=== PATIENT | male | born 1995 ===

== ENCOUNTER 2017-10-05 13:01 | Inpatient (IN) | payer BC, OTHER ==
[2017-10-05 13:02] VITALS: BMI 19.0
[2017-10-05] MEDS ORDERED: Sodium Chloride 0.9% 1,000 ML IV ONE (13:39)
--- NOTE | 2017-10-05 13:49 | C.PDOC ---
History Of Present Illness 22yo male, history of HIV (uknown CD4/viral load), comes to ER for evaluation of fever and chills x 3 days. Patient reports he had a T-max of 103 at home and has been taking OTC medication (Dayquil and Nyquil) with no relief. He also reports an episode of vomiting but denies any persistent episodes. Otherwise, patient denies any shortness of breath, chest pain, vomiting, constipation, abdominal pain, and offers no additional medical complaints. Time Seen by Provider: 10/05/17 13:18 Chief Complaint (Nursing): Abdominal Pain History Per: Patient History/Exam Limitations: no limitations Onset/Duration Of Symptoms: Days Current Symptoms Are (Timing): Still Present Associated Symptoms: Fever, Chills, Vomiting. denies: Nausea, Diarrhea, Constipation Past Medical History Reviewed: Historical Data, Nursing Documentation, Vital Signs Vital Signs: Last Vital Signs Temp 98.6 F 10/05/17 17:20 Pulse 68 10/05/17 17:20 Resp 20 10/05/17 17:20 BP 118/62 10/05/17 17:20 Pulse Ox 98 10/05/17 17:20 - Medical History PMH: HIV Denies: Depression Surgical History: No Surg Hx - [facility] Procedures ENDOSCOPIC BIOPSY OF RECTUM (01/14/12) Family History: States: No Known Family Hx - Social History Hx Tobacco Use: No Hx Alcohol Use: No Hx Substance Use: No - Immunization History Hx Tetanus Toxoid Vaccination: No Hx Influenza Vaccination: No Hx Pneumococcal Vaccination: No Review Of Systems Except As Marked, All Systems Reviewed And Found Negative. Constitutional: Positive for: Fever, Chills Cardiovascular: Negative for: Chest Pain Respiratory: Negative for: Shortness of Breath Gastrointestinal: Positive for: Vomiting. Negative for: Nausea, Abdominal Pain , Diarrhea, Constipation Physical Exam - Physical Exam Appears: Non-toxic, No Acute Distress Skin: Normal Color, Warm, Dry Head: Atraumatic, Normacephalic Eye(s): bilateral: Normal Inspection, PERRL, EOMI Nose: Normal Oral Mucosa: Moist Neck: Normal ROM, No Midline Cervical Tenderness, No Paracervical Tenderness, Supple, No Other (nucchal ridigity) Chest: Symmetrical Cardiovascular: Rhythm Regular Respiratory: Normal Breath Sounds, No Rales, No Rhonchi, No Wheezing Gastrointestinal/Abdominal: Normal Exam, Soft, No Tenderness, No Guarding, No Rebound Back: Normal Inspection, No CVA Tenderness, No Vertebral Tenderness, No Paraspinal Tenderness, Other (erythematous, raised rash noted to tailbone area) Extremity: Normal ROM, No Pedal Edema, No Deformity Neurological/Psych: Oriented x3, Normal Speech, Normal Cognition, Normal Motor, Normal Sensation ED Course And Treatment - Laboratory Results Result Diagrams: 10/05/17 13:55 10/05/17 13:55 ECG: Interpreted By Me, Viewed By Me ECG Rhythm: Sinus Rhythm ECG Interpretation: Normal Interpretation Of ECG: normal interval, normal axis, no ST/T changes Rate From EC O2 Sat by Pulse Oximetry: 100 (RA) Pulse Ox Interpretation: Normal Medical Decision Making Medical Decision Making: Assessment: Fever of unknown origin Plan: -- Labs -- CXR -- RPR -- UA -- IV Fluids -- Tylenol 975mg PO -- IV Toradol patient with rash to tailbone, not cellulitic, ? herpes zoster, patient admitted to hospital. Disposition Discussed With Dr.: Kate Diehl Doctor Will See Patient In The: Hospital Counseled Patient/Family Regarding: Studies Performed, Diagnosis - Disposition Disposition: HOSPITALIZED Disposition Time: 15:18 Condition: FAIR - Clinical Impression Clinical Impression: Fever, Rash, HIV (human immunodeficiency virus infection) - Scribe Statement The provider has reviewed the documentation as recorded by the Akhil De La Fuente Provider Attestation: All medical record entries made by the Akhil were at my direction and personally dictated by me. I have reviewed the chart and agree that the record accurately reflects my personal performance of the history, physical exam, medical decision making, and the department course for this patient. I have also personally directed, reviewed, and agree with the discharge instructions and disposition.
[2017-10-05 14:04] LABS: BASO % 0.3 % (0.0-2.0); HEMOGLOBIN 14.2 g/dL (12.0-18.0); LYMPH # 1.8 K/uL (1.0-4.3); LYMPH % 23.8 % (20.0-40.0); MEAN CELL VOLUME 93.2 fL (80.0-94.0); MEAN CORPUSCULAR HEMOGLOBIN 32.4 pg (27.0-31.0); MEAN CORPUSCULAR HGB CONC 34.8 g/dL (33.0-37.0); MEAN PLATELET VOLUME 8.6 fL (7.2-11.7); MONO % 13.5 % (0.0-10.0); NEUT # 4.6 K/uL (1.8-7.0); NEUT % 62.4 % (50.0-75.0); NRBC % 0.1 % (0.0-2.0); RBC 4.37 Mil/uL (4.40-5.90); RED CELL DISTRIBUTION WIDTH 12.3 % (11.5-14.5); WHITE BLOOD COUNT 7.4 K/uL (4.8-10.8)
[2017-10-05 14:12] LABS: SQUAMOUS EPITHIAL < 1 /hpf (0-5); URINE BACTERIA RARE (<OCC); URINE BILIRUBIN NEGATIVE (NEGATIVE); URINE BLOOD 1+ (NEGATIVE); URINE CLARITY Clear (Clear); URINE COLOR Yellow (YELLOW); URINE GLUCOSE (UA) NORMAL (Normal); URINE LEUKOCYTE ESTERASE NEG Leu/uL (Negative); URINE PROTEIN NEGATIVE (NEGATIVE); URINE UROBILINOGEN NORMAL mg/dL (0.2-1.0)
[2017-10-05 14:15] LABS: ALB/GLOB RATIO 0.9 (1.0-2.1); ALBUMIN 4.7 g/dL (3.5-5.0); ALT/SGPT 39 U/L (21-72); AST/SGOT 33 U/L (17-59); BLOOD UREA NITROGEN 9 mg/dL (9-20); CALCIUM 9.6 mg/dl (8.6-10.4); GFR AFRICAN-AMERICAN > 60; GFR NON-AFRICAN AMERICAN > 60
[2017-10-05] MEDS ORDERED: Sodium Chloride 0.9% 1,000 ML ONE (14:17)
--- NOTE | 2017-10-05 14:25 | RAD ---
Date of service: 10/05/2017 HISTORY: SOB COMPARISON: No prior. TECHNIQUE: Chest PA and lateral FINDINGS: LUNGS: No active pulmonary disease. PLEURA: No significant pleural effusion identified. No pneumothorax apparent. CARDIOVASCULAR: Normal. OSSEOUS STRUCTURES: No significant abnormalities. VISUALIZED UPPER ABDOMEN: Normal. OTHER FINDINGS: None. IMPRESSION: No active disease.
[2017-10-05 17:21] VITALS: RESP 20
--- NOTE | 2017-10-05 20:06 | CP.PCM.CON ---
History of Present Illness - History of Present Illness History of Present Illness: INFECTIOUS DISEASE CONSULT; HPI; 22-year-old male with history of HIV since 2011 ( unknown CD4/viral load ) is admitted via the emergency room for evaluation of fever and chills for the past 3 days. Patient states he had a MAXIMUM TEMPERATURE of 103 at home and also has been complaining off dry cough for which he has been taking [id number] medications that is NyQuil and DayQuil but with no relief. Patient states he was recently started on GENVOYA (elvitegravir/Amena/ Emtricitabine/TAF ) 1 tablet once a day since January 2017. Patient complains of 1 episode of vomiting which he believes was secondary to cough syrup but denies any persistent episodes. He denies shortness of breath, hemoptysis, chest pain, abdominal pain, nausea, diarrhea or constipation. Patient also noticed a rash sacral region which he states is getting worse for the past few days. He has been using steroid cream over it which is not helping. Patient denies any headache, photophobia, floaters or visual changes. Patient denies any oral ulcers, dysphagia or odynophagia. PMH: HIV (SINCE 2011 ) Denies: Depression Surgical History: No Surg Hx - [facility] Procedures ENDOSCOPIC BIOPSY OF RECTUM (01/14/12) Family History: States: No Known Family Hx - Social History Hx Tobacco Use: No Hx Alcohol Use: No Hx Substance Use: No - Immunization History Hx Tetanus Toxoid Vaccination: No Hx Influenza Vaccination: No Hx Pneumococcal Vaccination: No. ALLERGY; Peppers Review of Systems - Constitutional Constitutional: Chills, Fever - EENT Eyes: Spots in Vision. absent: Blurred Vision, Floaters Nose/Mouth/Throat: absent: Dysphagia, Mouth Lesions, Odynophagia, Neck Pain - Cardiovascular Cardiovascular: absent: Chest Pain, Dyspnea, Leg Edema, Pedal Edema - Respiratory Respiratory: Cough (dry). absent: Hemoptysis, Pain with Coughing - Gastrointestinal Gastrointestinal: Vomiting (once only.). absent: Abdominal Pain, Nausea - Genitourinary Genitourinary: absent: Dysuria, Freq UTI - Integumentary Integumentary: Rash (sacral vesiclar rash not crossing the midline in a dermatomal pattern?herpetic .) - Psychiatric Psychiatric: absent: Depression - Hematologic/Lymphatic Hematologic: As Per HPI. absent: Lymphadenopathy Past Patient History - Past Medical History & Family History Past Medical History?: Yes - Past Social History Smoking Status: Never Smoked - HEENT Hx HEENT Problems: (ASTIGMATISM) - HEMATOLOGICAL/ONCOLOGICAL Hx Human Immunodeficiency Virus (HIV): Yes - MUSCULOSKELETAL/RHEUMATOLOGICAL Hx Falls: No - GASTROINTESTINAL Hx Nausea: Yes (8-12) - PSYCHIATRIC Hx Depression: No Hx Substance Use: No - SURGICAL HISTORY Hx Surgeries: No - ANESTHESIA Hx Anesthesia: No Meds Allergies/Adverse Reactions: Allergies Allergy/AdvReac Type Severity Reaction Status Date / Time shrimp Allergy Intermediate ITCHING Verified 10/06/17 12:37 peppers Allergy Intermediate RASH Uncoded 10/05/17 13:06 - Medications Medications: Current Medications Acetaminophen (Tylenol 325mg Tab) 650 mg PO Q6 PRN PRN Reason: Fever >100.4 F Enoxaparin Sodium (Lovenox) 40 mg SC DAILY JUAN Pantoprazole Sodium (Protonix Ec Tab) 20 mg PO DAILY JUAN Physical Exam - Constitutional Appears: No Acute Distress - Head Exam Head Exam: NORMAL INSPECTION - Eye Exam Eye Exam: EOMI, PERRL - ENT Exam ENT Exam: Normal Oropharynx - Neck Exam Neck exam: Positive for: Normal Inspection. Negative for: Lymphadenopathy, Meningismus, Thyromegaly - Respiratory Exam Respiratory Exam: Clear to Auscultation Bilateral, NORMAL BREATHING PATTERN - Cardiovascular Exam Cardiovascular Exam: Tachycardia, REGULAR RHYTHM, +S1, +S2 - GI/Abdominal Exam GI & Abdominal Exam: Normal Bowel Sounds, Soft. absent: Organomegaly - Extremities Exam Extremities exam: Positive for: pedal pulses present. Negative for: calf tenderness, pedal edema - Neurological Exam Neurological exam: Alert, CN II-XII Intact, Normal Gait, Oriented x3, Reflexes Normal - Psychiatric Exam Psychiatric exam: Normal Mood - Skin Skin Exam: Normal Color, Warm Results - Vital Signs Recent Vital Signs: Last Vital Signs Temp 98.6 F 10/05/17 17:20 Pulse 68 10/05/17 17:20 Resp 20 10/05/17 17:20 BP 118/62 10/05/17 17:20 Pulse Ox 98 10/05/17 17:20 - Labs Result Diagrams: 10/06/17 07:33 10/06/17 07:33 Labs: Laboratory Results - last 24 hr 10/05/17 10/05/17 10/05/17 13:55 13:55 13:55 WBC 7.4 RBC 4.37 L Hgb 14.2 Hct 40.8 MCV 93.2 MCH 32.4 H MCHC 34.8 RDW 12.3 Plt Count 257 MPV 8.6 Neut % (Auto) 62.4 Lymph % (Auto) 23.8 Amelia % (Auto) 13.5 H Eos % (Auto) 0.0 Baso % (Auto) 0.3 Neut # (Auto) 4.6 Lymph # (Auto) 1.8 Amelia # (Auto) 1.0 H Eos # (Auto) 0.0 Baso # (Auto) 0.0 Sodium 138 Potassium 4.0 Chloride 96 L Carbon Dioxide 28 Anion Gap 18 BUN 9 Creatinine 1.0 Est GFR ( Amer) > 60 Est GFR (Non-Af Amer) > 60 Random Glucose 142 H Calcium 9.6 Magnesium 1.8 Total Bilirubin 1.0 AST 33 ALT 39 Alkaline Phosphatase 77 Total Protein 9.9 H Albumin 4.7 Globulin 5.2 H Albumin/Globulin Ratio 0.9 L Urine Color Urine Clarity Urine pH Ur Specific [place] Urine Protein Urine Glucose (UA) Urine Ketones Urine Blood Urine Nitrate Urine Bilirubin Urine Urobilinogen Ur Leukocyte Esterase Urine WBC (Auto) Urine RBC (Auto) Ur Squamous Epith Cells Urine Bacteria RPR Nonreactive 10/05/17 14:02 WBC RBC Hgb Hct MCV MCH MCHC RDW Plt Count MPV Neut % (Auto) Lymph % (Auto) Amelia % (Auto) Eos % (Auto) Baso % (Auto) Neut # (Auto) Lymph # (Auto) Amelia # (Auto) Eos # (Auto) Baso # (Auto) Sodium Potassium Chloride Carbon Dioxide Anion Gap BUN Creatinine Est GFR ( Amer) Est GFR (Non-Af Amer) Random Glucose Calcium Magnesium Total Bilirubin AST ALT Alkaline Phosphatase Total Protein Albumin Globulin Albumin/Globulin Ratio Urine Color Yellow Urine Clarity Clear Urine pH 5.0 Ur Specific [place] 1.016 Urine Protein Negative Urine Glucose (UA) Normal Urine Ketones Negative Urine Blood 1+ H Urine Nitrate Negative Urine Bilirubin Negative Urine Urobilinogen Normal Ur Leukocyte Esterase Neg Urine WBC (Auto) 1 Urine RBC (Auto) 4 H Ur Squamous Epith Cells < 1 Urine Bacteria Rare RPR - Imaging and Cardiology Chest x-ray Status: Report reviewed by me (-VE) Assessment & Plan (1) Fever Assessment and Plan: PANCULTURE. ESR CRP. MRSA SCREEN. HERPES1/2 AB CRYPTOCOCCUS SERUM AG. START IV BACTRIM 240 MG iv PIGGYBACK EVERY 8 HOURLY 10/05/17. START iv ACYCLOVIR 400 MG iv PIGGYBACK EVERY 8 HOURLY .10/05/17. fOLLOW-UP CULTURES TO ADJUST ANTIBIOTICS. CONTACT PRECAUTIONS Status: Acute (2) Herpes zoster involving sacral dermatome Assessment and Plan: ZOVIRAX OINTMENT LOCALLY TID. cONTACT PRECAUTIONS. PATIENT STARTED ON iv ACYCLOVIR 400 EVERY 8 HOURLY. 10/05/17. Status: Acute (3) HIV (human immunodeficiency virus infection) Assessment and Plan: LYMPHOCYTE SUBSET STUDIES hiv-1 rna pcr QUANTITATIVE LEVELS. CONTINUE BY MOUTH GENVOYA 1 TABLET BY MOUTH ONCE A DAY DAILY. PHARMACY DOES NOT CARRY THIS MEDICATION. pATIENT CAN USE HIS HOME MEDICATION. DISCUSSED WITH STAFF AND MADE AWARE. Status: Acute
[2017-10-05] MEDS ORDERED: Promethazine 6.25 MG/5 ML CUP PO PRN (20:30)
[2017-10-05] MEDS: Sulfamethoxazole/Trimethoprim 240 MG in Dextrose 5% In Water 250 ML IVPB SCH (21:00)
[2017-10-05] MEDS: Acyclovir 400 MG in Sodium Chloride 0.9% 100 ML IV SCH (22:30)
[2017-10-06] MEDS: Acyclovir 400 MG in Sodium Chloride 0.9% 100 ML IV SCH ×3 (05:23→21:00)
[2017-10-06 07:49] LABS: BASO % 0.1 % (0.0-2.0); EOS % 0.1 % (0.0-4.0); HEMOGLOBIN 12.9 g/dL (12.0-18.0); LYMPH # 2.4 K/uL (1.0-4.3); MEAN CELL VOLUME 93.3 fL (80.0-94.0); MEAN CORPUSCULAR HEMOGLOBIN 33.4 pg (27.0-31.0); MEAN CORPUSCULAR HGB CONC 35.8 g/dL (33.0-37.0); MEAN PLATELET VOLUME 8.5 fL (7.2-11.7); MONO # 0.8 K/uL (0.0-0.8); MONO % 12.2 % (0.0-10.0); NEUT % 48.6 % (50.0-75.0); NRBC % 0.1 % (0.0-2.0); RBC 3.86 Mil/uL (4.40-5.90); RED CELL DISTRIBUTION WIDTH 12.2 % (11.5-14.5); WHITE BLOOD COUNT 6.2 K/uL (4.8-10.8)
--- NOTE | 2017-10-06 07:51 | HP ---
date 10/05/17 CHIEF COMPLAINT: Rash on the tailbone area in the back. HISTORY OF PRESENT ILLNESS: Mr. Harman Ritter is a 22-year-old male with history of HIV, unknown CD count or viral load, came to the emergency room for evaluation of fever, chills for three days. The patient reports he has had T-MAX of 103 at home and the patient has been taking [id number] medication, DayQuil and NyQuil. There is no relief. He reports he had episodes of vomiting, but denies any persistent vomiting. Otherwise, the patient denies shortness of breath. No constipation. no abdominal pain. There is a rash in the back area at the sacral area. PAST MEDICAL HISTORY: HIV. FAMILY HISTORY: Unknown. HABITS: No tobacco, no alcohol, no substance abuse HOME MEDICATIONS: Reviewed by me. REVIEW OF SYSTEMS: The patient was seen and examined at bedside in his room, looking comfortable. No fever right now. No headache or dizziness. No chest pain. No palpitation. No hematuria or hematochezia. He has rash on the back in the sacral area, coccygeal area, looks like herpes rash. PHYSICAL EXAMINATION: VITAL SIGNS: Temperature 98.6, pulse 60, respiratory rate 20, blood pressure 108/62. HEENT: Head: Normocephalic and atraumatic. Eyes: PERRLA. Extraocular muscles intact. Conjunctivae clear. Nose patent. NECK: Supple. No carotid bruits. No JVD or thyromegaly. CHEST: Bilaterally symmetrical. HEART: S1, S2 positive. LUNGS: Clear to auscultation. ABDOMEN: Soft. Bowel sounds present. No organomegaly. EXTREMITIES: No edema. No cyanosis. NEUROLOGICAL: The patient is awake, alert, moving all four extremities. No focal deficit. LABORATORY DATA: White blood cell 7.4, hemoglobin 14.2, hematocrit 40.8, platelets 257. Sodium 138, potassium 4, BUN 9, creatinine 1, glucose 142. ASSESSMENT AND PLAN: Mr. Harman Ritter is a 22-year-old male with hyperglycemia, HIV-positive, noncompliant, not getting treatment, came with fever, rash. We called Infectious Disease consult. Seen by Dr. Love Dominguez and started on medicine, acyclovir. Hematuria. Blood cultures and urine cultures done. Methicillin-resistant Staphylococcus aureus screening routine done. Put the patient on Bactrim, Lovenox for deep venous thrombosis prophylaxis, promethazine, pain medication, Zovirax. Antiviral treatment. Repeat labs. We will follow up. Discussion held with the Nursing staff. Kate Diehl MD JULIO C
[2017-10-06 08:16] LABS: BLOOD UREA NITROGEN 6 mg/dL (9-20); CALCIUM 8.8 mg/dl (8.6-10.4); GFR AFRICAN-AMERICAN > 60; GFR NON-AFRICAN AMERICAN > 60
[2017-10-06] MEDS: Enoxaparin 40 mg Syringe SC SCH (09:12)
[2017-10-06] MEDS: Pantoprazole 20 mg EC Tab PO SCH (09:14)
[2017-10-06] MEDS: Acyclovir 5% Oint (30 gm) EXT SCH ×3 (09:15→17:42)
[2017-10-06] MEDS: Sulfamethoxazole/Trimethoprim 240 MG in Dextrose 5% In Water 250 ML IVPB SCH ×2 (10:00→22:10)
[2017-10-06] MEDS ORDERED: cefTRIAXone IV 1 gm in Dextros 50 ML IVPB SCH (14:00)
[2017-10-06] MEDS ORDERED: Iodixanol 320 MG/ML 100 ML BOTTLE IV ONE (15:29)
[2017-10-06] MEDS: cefTRIAXone IV 1 gm in Dextros 50 ML IVPB SCH (16:28)
--- NOTE | 2017-10-06 18:20 | CT ---
Date of service: 10/06/2017 PROCEDURE: CT Chest without contrast HISTORY: Fever, pneumonia COMPARISON: October 05, 2017. Single-view chest TECHNIQUE: Contiguous axial images were obtained through the chest without intravenous contrast enhancement. Sagittal and coronal reconstructions were performed. Radiation dose (DLP): 258.94 mGy-cm. This CT exam was performed using one or more of the following dose reduction techniques: Automated exposure control, adjustment of the mA and/or kV according to patient size, and/or use of iterative reconstruction technique. FINDINGS: LUNGS: Clear lungs. Visualized airway clear. MEDIASTINUM: Unremarkable thoracic aorta. No aneurysm. Normal sized heart. Main pulmonary artery unremarkable. No vascular congestion. No lymphadenopathy. PLEURA: No pleural fluid. No pneumothorax. BONES: No fracture. No destructive lesion. UPPER ABDOMEN: Grossly unremarkable. OTHER FINDINGS: None. IMPRESSION: Unremarkable non-contrast enhanced CT of the chest.
--- NOTE | 2017-10-06 20:20 | CP.PCM.PN ---
Subjective - Date & Time of Evaluation Date of Evaluation: 10/06/17 Time of Evaluation: 20:19 - Subjective Subjective: CHIEF COMPLAINTS TODAY : TMAX 101.3 STATES HE FEEELS BETTER. Denies shortness of breath. Sitting up on the side of the bed. Rash sacrum-improving ROS. HEENT : N. Resp : No cough, wheezing ,pleuritic CP ,or hemoptysis Cardio : No anginal CP, PND, orthopnea, palpitation GI : No abd.pain, n/v ,diarrhea or GI bleeding . 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 Musculoskel : No joint swelling , Derm : No rash Psych : Normal affect. Ext : No swelling ,calf pain PE. Pt. is alert awake in no distress. V.S As noted in the chart Head ,ear nose,throat and eyes : Normal. Neck : Supple with normal carotids. Lungs: Clear air entry. Heart : S1 & S2 normal with S4. No murmur. Abd : Soft non tender with normal bowel sounds. Neuro : Moves all ext. with no localized deficit. Ext : No edema with intact pulses.Non tender calves Derm SACRAL RASH CONSISTENT WITH HERPES ZOSTER LABS/RADIOLOGY: reviewed. Objective - Vital Signs/Intake and Output Vital Signs (last 24 hours): Temp Pulse Resp BP Pulse Ox 98.8 F 78 20 117/60 96 10/06/17 15:30 10/06/17 15:30 10/06/17 15:30 10/06/17 15:30 10/06/17 15:30 Intake and Output: 10/06/17 10/07/17 18:59 06:59 Intake Total 990 Balance 990 - Medications Medications: Current Medications Acetaminophen (Tylenol 325mg Tab) 650 mg PO Q6 PRN PRN Reason: Fever >100.4 F Last Admin: 10/06/17 09:08 Dose: 650 mg Acyclovir (Zovirax 5% Ointment) 0.5 gm EXT TID [facility] Last Admin: 10/06/17 17:42 Dose: 1 applic Enoxaparin Sodium (Lovenox) 40 mg SC DAILY [facility] Last Admin: 10/06/17 09:12 Dose: Not Given Trimethoprim/Sulfamethoxazole (240 mg/ Dextrose) 250 mls @ 167 mls/hr IVPB Q12H [facility] PRN Reason: Protocol Last Admin: 10/06/17 10:00 Dose: 167 mls/hr Acyclovir 400 mg/ Sodium (Chloride) 100 mls @ 100 mls/hr IV Q8H JUAN PRN Reason: Protocol Last Admin: 10/06/17 14:33 Dose: 100 mls/hr Ceftriaxone Sodium (Rocephin Iv 1 Gm Duplex) 50 mls @ 100 mls/hr IVPB Q12H JUAN PRN Reason: Protocol Last Admin: 10/06/17 16:28 Dose: 100 mls/hr Ibuprofen (Motrin Tab) 600 mg PO TID PRN PRN Reason: Other Last Admin: 10/06/17 10:55 Dose: 600 mg Ondansetron HCl (Zofran Inj) 4 mg IVP Q6H PRN PRN Reason: Nausea/Vomiting Last Admin: 10/06/17 00:24 Dose: 4 mg Pantoprazole Sodium (Protonix Ec Tab) 20 mg PO DAILY JUAN Last Admin: 10/06/17 09:14 Dose: Not Given Promethazine HCl (Phenergan Syrup) 6.25 mg PO Q8H PRN PRN Reason: Cough - Labs Labs: 10/06/17 07:33 10/06/17 07:33 Assessment and Plan (1) Fever Assessment & Plan: ON IV BACTRIM 240 MG iv PIGGYBACK EVERY 8 HOURLY 10/05/17. ON iv ACYCLOVIR 400 MG iv PIGGYBACK EVERY 8 HOURLY .10/05/17. fOLLOW-UP CULTURES TO ADJUST ANTIBIOTICS. CONTACT PRECAUTIONS. F/U CT CHEST PENDING Status: Acute (2) Herpes zoster involving sacral dermatome Assessment & Plan: ON iv ACYCLOVIR. zOVIRAX OINTMENT LOCALLY DIRECTED Status: Acute (3) HIV (human immunodeficiency virus infection) Assessment & Plan: FOLLOW-UP VIRAL LOAD F/U LYMPHOCYTE SUBSET. CONTINUE GENVOYA 1 TABLET BY MOUTH od DAILY FROM HOME. Status: Acute
[2017-10-07] MEDS: cefTRIAXone IV 1 gm in Dextros 50 ML IVPB SCH (03:23)
[2017-10-07] MEDS: Acyclovir 400 MG in Sodium Chloride 0.9% 100 ML IV SCH ×2 (05:21→13:38)
--- NOTE | 2017-10-07 06:49 | PN ---
Copied To: Kate Diehl MD Attending MD: Kate Diehl MD DATE: 10/06/2017 SUBJECTIVE: The patient is a 22-year-old male. The patient is looking comfortable. No more fever. No more pain. No nausea, vomiting, or diarrhea. No hematuria, no hematochezia. No headache or dizziness. No chest pain. No palpitations. Partner was sitting on the bedside also. PHYSICAL EXAMINATION: VITAL SIGNS: Temperature 98.8, pulse 78, respiratory rate 20, blood pressure 117/68 and pulse oximetry 96. HEENT: Head, normocephalic and atraumatic. Eyes, PERRLA. Extraocular muscles intact. Conjunctivae clear. Nose is patent. Mucous membrane moist. NECK: Supple. No carotid bruit, JVD, or thyromegaly. CHEST: Bilaterally symmetrical. HEART: S1 and S2 positive. LUNGS: Clear to auscultation. ABDOMEN: Soft. Bowel sounds present. No organomegaly. EXTREMITIES: No edema, no cyanosis NEUROLOGIC: The patient is awake, alert. Moving all four extremities. No focal deficits. MEDICATIONS: Tylenol, acyclovir, Lovenox, Bactrim, ceftriaxone, ibuprofen, Zofran, pantoprazole, promethazine. LABORATORY DATA: White blood cell noted , hemoglobin 12.9, hematocrit 36, platelets 231,000. Sodium 139, potassium 4.2, BUN 6, creatinine 1.1, glucose 115. ASSESSMENT AND PLAN: Mr. Harman Ritter is a 22-year-old male with fever, herpes zoster in the sacral dermatome, human immunodeficiency virus, CAT scan of the chest is done, unremarkable, noncontrast enhanced CT of the chest noted . Continue medicine as per Infectious Disease. Gastrointestinal prophylaxis. The patient has a history of hematuria. He is taking acyclovir. Blood cultures and urine cultures done. Results are pending. Lovenox for deep venous thrombosis prophylaxis given. We will follow up. Kate Diehl MD [email or web address]
[2017-10-07 08:42] VITALS: BP 107/63; PULSE 71; TEMP 99.3; O2SAT 95
[2017-10-07] MEDS: Pantoprazole 20 mg EC Tab PO SCH (10:16)
[2017-10-07] MEDS: Acyclovir 5% Oint (30 gm) EXT SCH ×2 (10:18→13:38)
[2017-10-07] MEDS: Enoxaparin 40 mg Syringe SC SCH (10:18)
[2017-10-07] MEDS: Sulfamethoxazole/Trimethoprim 240 MG in Dextrose 5% In Water 250 ML IVPB SCH (10:18)
--- NOTE | 2017-10-07 12:33 | CP.PCM.PN ---
Subjective - Date & Time of Evaluation Date of Evaluation: 10/07/17 Time of Evaluation: 12:33 Objective - Vital Signs/Intake and Output Vital Signs (last 24 hours): Temp Pulse Resp BP Pulse Ox 99.3 F 71 20 107/63 95 10/07/17 08:41 10/07/17 08:41 10/07/17 08:41 10/07/17 08:41 10/07/17 08:41 Intake and Output: 10/07/17 10/07/17 06:59 18:59 Intake Total 600 440 Output Total 700 2 Balance -100 438 - Medications Medications: Current Medications Acetaminophen (Tylenol 325mg Tab) 650 mg PO Q6 PRN PRN Reason: Fever >100.4 F Last Admin: 10/06/17 09:08 Dose: 650 mg Acyclovir (Zovirax 5% Ointment) 0.5 gm EXT TID [facility] Last Admin: 10/07/17 10:18 Dose: Not Given Enoxaparin Sodium (Lovenox) 40 mg SC DAILY [facility] Last Admin: 10/07/17 10:18 Dose: Not Given Trimethoprim/Sulfamethoxazole (240 mg/ Dextrose) 250 mls @ 167 mls/hr IVPB Q12H JUAN PRN Reason: Protocol Last Admin: 10/07/17 10:18 Dose: Not Given Acyclovir 400 mg/ Sodium (Chloride) 100 mls @ 100 mls/hr IV Q8H JUAN PRN Reason: Protocol Last Admin: 10/07/17 05:21 Dose: 100 mls/hr Ceftriaxone Sodium (Rocephin Iv 1 Gm Duplex) 50 mls @ 100 mls/hr IVPB Q12H JUAN PRN Reason: Protocol Last Admin: 10/07/17 03:23 Dose: 100 mls/hr Ibuprofen (Motrin Tab) 600 mg PO TID PRN PRN Reason: Other Last Admin: 10/06/17 10:55 Dose: 600 mg Ondansetron HCl (Zofran Inj) 4 mg IVP Q6H PRN PRN Reason: Nausea/Vomiting Last Admin: 10/06/17 00:24 Dose: 4 mg Pantoprazole Sodium (Protonix Ec Tab) 20 mg PO DAILY [facility] Last Admin: 10/07/17 10:16 Dose: 20 mg Promethazine HCl (Phenergan Syrup) 6.25 mg PO Q8H PRN PRN Reason: Cough - Labs Labs: 10/06/17 07:33 10/06/17 07:33 Assessment and Plan (1) Fever Status: Acute (2) Herpes zoster involving sacral dermatome Status: Acute (3) HIV (human immunodeficiency virus infection) Status: Acute
[2017-10-07 17:35] LABS: % CD4 (T HELPER CELL) 23 Percent (30-61); % CD8 (SUPPRESSOR T CELL) 49 Percent (12-42); ABSOLUTE CD4 CELLS 591 Cells/mcL (490-1740); ABSOLUTE CD8 CELLS 1241 Cells/mcL (180-1170); ABSOLUTE LYMPHOCYTES 2517 Cells/mcL (850-3900); HELPER/SUPPRESSOR RATIO 0.48 Ratio (0.86-5.00)
--- NOTE | 2017-10-07 21:26 | CARD ---
APPROVED REPORT Date of service: 10/05/2017 EKG Measurement Heart [id number] <Conclusion> Sinus rhythm with short DC Otherwise normal ECG
--- NOTE | 2017-10-08 23:42 | DS ---
Copied To: Kate Diehl MD Attending MD: Kate Diehl MD Went home against medical advice on 10/07/2017 CHIEF COMPLAINT: Rash on the back in the sacral area, fever. HISTORY OF PRESENT ILLNESS: Mr. Riya Hammer is a 22-year-old male with history of HIV positive, unknown CD count or viral load, came to the emergency room for evaluation of fever, chills for 3 days. The patient reports he had T-max of 103 at home, and the patient has been taking [id number] medications DayQuil and NyQuil. There is no relief. He reports that he had episodes of vomiting, but denies any persistent vomiting. We admitted the patient. Consult called by Dr. Love Dominguez for infectious disease and for rash. Antibiotics were given, the patient was put on isolation. CAT scan of the chest was done. The patient decided to go home against medical advice, to stay education done, that you can , and his HIV will be converted to AIDS, but the patient still wanted to go home. FAMILY HISTORY: Unknown. HABITS: According to the patient, no alcohol, no substance abuse. No tobacco. HOME MEDICATIONS: Reviewed by me. REVIEW OF SYSTEMS: The patient was seen and examined at the bedside early in the morning, looking comfortable. No fever. No chills. No nausea or vomiting. No diarrhea. No hematuria, no hematochezia. No headache or dizziness. No chest pain or palpitation. Rash on the sacral area is getting better. PHYSICAL EXAMINATION: VITAL SIGNS: Temperature 99.3, pulse 71, respiratory rate 20, blood pressure 107/53, pulse oximetry is 95. HEENT: Head: Normocephalic and atraumatic. Eyes: PERRLA. Extraocular movements intact. Conjunctivae clear. Nose patent. Mucous membrane moist. NECK: Supple. No carotid bruits. No thyromegaly. CHEST: Bilaterally symmetrical. HEART: S1 and S2 are positive. LUNGS: Clear to auscultation. ABDOMEN: Soft. Bowel sounds present. No organomegaly. EXTREMITIES: No edema. No cyanosis. NEUROLOGIC: The patient is awake and alert. Moving all four extremities. No focal deficit. MEDICATIONS: Tylenol, Zovirax, Lovenox, Bactrim, acyclovir, ceftriaxone, ibuprofen, Zofran, pantoprazole, and promethazine. LABORATORY DATA: White blood cells 6.3, hemoglobin 12.9, hematocrit 36, platelets 231. Sodium 139, potassium 4.2, BUN 6, creatinine 1.1, and glucose 114. ASSESSMENT: Mr. Riya Hammer is a 22-year-old male with anemia, hyperglycemia, fever, herpes zoster involved in the sacral dermatomes, human immunodeficiency virus positive, noncompliant, used to be compliant, was getting treatment, left against medical advice. CAT scan of the chest was done and reviewed by me. PLAN: To continue antibiotics more, but the patient refused. Even before sending hematocrit, the patient was refusing antibiotics, a history of hematuria. GI and DVT prophylaxes given. The patient promised he will follow up with his own primary care physician, his virus doctor, and will come back in the ER if fever will come back. Kate Diehl MD MTDD
== END 2017-10-07 14:00 | disposition left against medical advice (07) | DRG 976 ==
LOC: C.ER 13:01 → C.9E 15:17 → C.3T 16:35 → UNDODISIN 10-07 12:50
PROVIDERS: ADMIT Internal Medicine; ATTEND Internal Medicine
DX: B20 Human immunodeficiency virus [HIV] disease (principal); B02.9 Zoster without complications; R50.9 Fever, unspecified; Z91.19 Patient's noncompliance with other medical treatment and regimen